=== PATIENT | female | born 1980 | race Caucasian/White ===

== ENCOUNTER 2021-07-16 09:09 | Outpatient (CLI) | payer BC ==
[2021-07-16 10:23] LABS: #Eosinphils 0.1 10x3/uL (0.0-0.5); #Monocytes 0.3 10x3/uL (0.0-1.1); #Neutrophils 3.1 10x3/uL (1.5-8.4); %Basophils 0.8 % (0.0-2.0); %Eosinophils 1.6 % (0.0-6.0); %Lymphocytes 28.2 % (18.0-47.0); %Monocytes 6.4 % (0.0-10.0); %Neutrophils 62.8 % (40.0-75.0); Hemoglobin 14.6 g/dL (12.0-15.5); Mean Corpuscular HGB CONC 33.6 g/dL (32.0-36.0); Mean Corpuscular Hemoglobin 32.4 pg (27.0-33.0); Mean Corpuscular Volume 96.5 fl (81.6-98.3); Mean Platelet Volume 10.4 fl (7.4-10.4); Platelet Count 243 10x3/uL (150-450); RBC Distribution Width 12.1 % (11.5-14.5); Red Blood Cell (RBC) Count 4.51 10x6/uL (3.90-5.03)
[2021-07-16 20:19] LABS: SARS-CoV-2 PCR by NAA Not Detected (NotDetected)
== END 2021-07-16 09:10 | disposition home or self-care (01) ==
LOC: LABBT 09:09
PROVIDERS: ATTEND Surgery
DX: Z01.818 Encounter for other preprocedural examination (principal); K60.2 Anal fissure, unspecified; Z20.822 Contact with and (suspected) exposure to COVID-19
CPT/HCPCS: 85025; 93005; 93010; U0003; U0005

== ENCOUNTER 2021-07-19 06:54 | Day surgery (SDC) | payer BC ==
[2021-07-16 14:39] VITALS: BMI 20.5
[2021-07-19] MEDS ORDERED: Lidocaine 1% MPF 2 ML VIAL ONE (07:22)
[2021-07-19] MEDS ORDERED: Midazolam HCl 2 mg/2 ml Vial ONE (07:59)
[2021-07-19] MEDS ORDERED: Bacitracin Zinc Ointment 30 gm TUBE ONE (08:20)
[2021-07-19] MEDS ORDERED: Bupivacaine 0.25% HCL 30 ML VIAL ONE (08:20)
[2021-07-19] MEDS ORDERED: Xylocaine 1% w/ Epi 1:100K 10 ML VIAL ONE (08:20)
[2021-07-19] MEDS ORDERED: SUGAMMADEX SODIUM 200 MG/2 ML VIAL ONE (08:45)
[2021-07-19] MEDS ORDERED: ceFAZolin (BATCH) 2 GM/100 ML BAG ONE (08:45)
[2021-07-19] MEDS ORDERED: Fentanyl 250 MCG/5 ML VIAL ONE (08:45)
[2021-07-19] MEDS ORDERED: Famotidine/PF 20 mg/2ml Vial ONE (08:45)
[2021-07-19] MEDS ORDERED: Lidocaine 1% PF 5 ML VIAL ONE (08:53)
[2021-07-19] MEDS ORDERED: Ondansetron PF 4 MG/2 ML Vial ONE (08:53)
[2021-07-19] MEDS ORDERED: Dexamethasone 20 MG/5 ML VIAL ONE (08:53)
[2021-07-19] MEDS ORDERED: Metoclopramide HCl 10 MG/2 ML VIAL ONE (08:53)
[2021-07-19] MEDS ORDERED: PROPOFOL 200 MG/20 ML VIAL ONE (08:53)
[2021-07-19] MEDS ORDERED: Ketorolac Tromethamine 30 MG/ML VIAL ONE (08:53)
[2021-07-19] MEDS ORDERED: Meperidine HCl/PF 25 MG/ML VIAL ONE (09:33)
== END 2021-07-19 10:50 | disposition home or self-care (01) ==
LOC: SDC 06:54
PROVIDERS: ATTEND Surgery
PROC: 0D8R3ZZ Division of Anal Sphincter, Percutaneous Approach (ICD-10-PCS; principal; 2021-07-19)
DX: K60.1 Chronic anal fissure (principal)
CPT/HCPCS: J0690; J1100; J1885; J2175; J2250; J2405; J2704; J2765; J3010; S0020; S0028